=== PATIENT | male | born 1955 | race Caucasian/White ===

== ENCOUNTER 2022-11-19 10:11 | Emergency (ER) | payer MEDICARE | END 2022-11-19 10:31 | LOC: MW.ED 10:11 | DX: Z02.89 Encounter for other administrative examinations (principal) | CPT/HCPCS: 99282; 99283 ==

== ENCOUNTER 2024-05-20 11:33 | Emergency (ER) | payer MEDICARE | END 2024-05-20 12:14 | disposition home or self-care (01) | LOC: MW.ED 11:33 | DX: Z02.89 Encounter for other administrative examinations (principal); Z76.0 Encounter for issue of repeat prescription | CPT/HCPCS: 99283 ==

== ENCOUNTER 2024-06-26 18:10 | Emergency (ER) | payer MEDICARE ==
[2024-06-26] MEDS: Carbidopa/Levodopa 25-100 MG Tab.ER PO ONE (19:24)
== END 2024-06-26 19:30 ==
LOC: MW.ED 18:10
DX: Z02.89 Encounter for other administrative examinations (principal); Z76.0 Encounter for issue of repeat prescription; G20.A1 Parkinson's disease without dyskinesia, without mention of fluctuations; Z79.899 Other long term (current) drug therapy
CPT/HCPCS: 99283; A9270